=== PATIENT | female | born 1960 | race African-American/Black ===

== ENCOUNTER 2017-04-28 15:34 | Inpatient (IN) | payer OTHER ==
[~2017-04-28] VITALS: Ht 177.8 cm; Wt 80.1 kg
[2017-04-28] VITALS (10 sets, daily range): BP systolic 86–153; BP diastolic 70–98
--- NOTE | ~2017-04-28 | HC ---
[facility] [place] [address] CONSULTATION Name: NICOLE OLGUINCJ Room #: 248-P [facility] IN M.R.#: [id number] Admission: 04/28/17 Attend Phys: Levon Mclaughlin MD Discharge: 05/02/17 Date of : 58 Report #: [id number] THIS REPORT FOR: //name// CC: Levon KNIGHT PCP DATE OF SERVICE: 04/29/2017 WOUND CARE CONSULTATION NOTE REASON FOR CONSULTATION: Sepsis with right ischial stage 4 pressure ulcer in the setting of debility, previous cerebrovascular accident, dementia and diabetes. HISTORY OF PRESENT ILLNESS: The patient is a 56-year-old woman suffering from dementia, debility and previous cerebrovascular accident with right-sided weakness who is known to the wound care team from previous hospitalized care. The patient is admitted with sepsis, elevated white blood count of 15,000 and hypernatremia with sodium of 162. 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 The patient is admitted now in the Intensive Care Unit with sepsis and has been seen by Dr. Joyner. PAST MEDICAL HISTORY: Previous cerebrovascular accident with right-sided weakness, dementia, seizure disorder, diabetes mellitus type 2, history of hepatitis C, history of acute kidney injury, current urinary tract infection, diabetes mellitus type 2. PAST SURGICAL HISTORY: PEG tube placement. REVIEW OF SYSTEMS: Not obtainable. MEDICATIONS: Include Rocephin, Flagyl, Dilantin, amlodipine, aspirin, Keppra, Levemir insulin, hydralazine, Zestril, omeprazole, lactulose. Also, metoprolol and hydralazine. PHYSICAL EXAMINATION: Shows chronically ill-appearing elderly -Malaysian woman with some right-sided weakness. Mucous membranes are moist. The patient is conscious. Neck is supple. The patient shows right-sided weakness on exam. Abdomen is soft with presence of a PEG tube and a Quinn bladder catheter. There are no wounds to the lower extremities. Examination of the patient's back shows a large 3 x 3 x 4 cm deep right ischial stage 4 pressure ulcer. Wound has a foul odor and has dark black khan desiccated tissue lining it and at the base. There is minimal amount of purulence and there appears to be a minimal amount of necrotic burden. There is exposed bone and connective tissue at the base of the wound. There did not appear to be any deep tunneling. [place] [address] CONSULTATION Name: CJ STERLING Room #: 248-P [facility] IN M.R.#: [id number] Admission: 04/28/17 Attend Phys: Levon Mclaughlin MD Discharge: 05/02/17 Date of : 58 Report #: [id number] tracking infection. On the patient's left side, there is a smaller 1 cm stage 3 left sacral pressure ulcer. IMPRESSION: 1. Diabetes mellitus type 2, skin ulcer. 2. Dementia. 3. Debility. 4. Status post cerebrovascular accident with right-sided weakness. 5. Admission with sepsis and urinary tract infection. 6. History of hepatitis C. 7. Right ischial stage 4 pressure ulcer with superficial necrosis of the wound edges. No evidence of deep sepsis. 8. Sacral stage 3 pressure ulcer. PLAN: Right ischial stage 4 pressure ulcer may require bedside debridement at some point, but does not appear to have a great burden of necrotic tissue nor have a need to require operative debridement at this time. We will attempt to clean the wound up with twice daily half strength Dakin's dressings. Barrier cream for the small sacral 3 ulcer. Maximize nutrition with PEG tube, total body offloading with low air loss mattress. We will pay close attention to right ischial stage 4 pressure ulcer for possible need for debridement, antibiotic selection per Dr. Joyner. <ELECTRONICALLY SIGNED> By: Ori Nolasco MD 05/03/17 1018 [id number] Ori Nolasco MD /nt
--- NOTE | ~2017-04-28 | EKG ---
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 Babysitter: MZOOK : 1960 Requested By: Johana Lazo Order Number: [id number] MD: Wesley Chavez Measurements Intervals [place] Rate: 96 P: 50 MT: 143 QRS: -54 QRSD: 113 T: 72 QT: 399 QTc: 505 Interpretive Statements Sinus rhythm Left anterior hemiblock Abnormal R-wave progression, late transition Left ventricular hypertrophy Compared to ECG 01/18/2012 09:37:03 No significant change was found Electronically Signed On 04-29-2017 8:47:19 [employer]OUR [employer]ER by Wesley Chavez [email or web address] <ELECTRONICALLY SIGNED> By: Wesley Chavez MD, [facility] 04/29/17 0847 1650 1650 Wesley Chavez MD, [facility] /EPI
--- NOTE | ~2017-04-28 | HC ---
[facility] [place] [address] CONSULTATION Name: CJ STERLING Room #: 248-P ADM IN M.R.#: [id number] Admission: 04/28/17 Attend Phys: Levon Mclaughlin MD Discharge: Date of : 58 Report #: [id number] THIS REPORT FOR: //name// CC: Levon Mclaughlin NO PCP TYPE OF REPORT: Pulmonary consultation. REFERRING PHYSICIAN: Levon Mclaughlin M.D. REASON FOR REFERRAL: Sepsis. HISTORY OF PRESENT ILLNESS: The patient is a 56-year-old -[place] female who was brought to the Emergency Room with altered mental status. She normally resides at [facility]. She was admitted with probable sepsis. A pulmonary critical care consultation was requested. The patient has dementia. Not able to provide much history. In the ER, the patient was found to be hypoglycemic. She is felt to have a urinary tract infection with acute kidney injury and altered mental status. Presently, she is resting in bed. Moans occasionally. 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 PAST SURGICAL HISTORY: Status post PEG tube placement. ALLERGIES: None to medications. HOME MEDICATIONS: Reviewed from the jail. FAMILY HISTORY: Noncontributory. SOCIAL HISTORY: No tobacco or alcohol use. She resides in a jail. REVIEW OF SYSTEMS: Deferred as the patient is not able to provide much history. PHYSICAL EXAMINATION: GENERAL: She is awake, at times not coherent. She moans to pain. VITAL SIGNS: Temperature is 37 degrees Celsius, pulse is 96, respiratory rate is 18, blood pressure 126/86 mmHg and saturation 100%. HEENT: Normocephalic and atraumatic. NECK: Supple, without lymphadenopathy or thyromegaly. CHEST: Breath sounds are fair anteriorly. No obvious rales or wheezes. [facility] [address] [place] [address] CONSULTATION Name: NICOLE OLGUINCJ Room #: 248-P ADM IN M.R.#: [id number] Admission: 04/28/17 Attend Phys: Levon Mclaughlin MD Discharge: Date of : 58 Report #: [id number] CARDIOVASCULAR: Normal S1 and S2. There are no murmurs or gallop. There is no JVD. There is no carotid bruit. Pulses are 2+/4+ bilaterally. ABDOMEN: Soft and nontender. No organomegaly or masses felt. GENITOURINARY: Deferred. RECTAL: Deferred. EXTREMITIES: There is no edema, cyanosis or clubbing. RADIOLOGICAL DATA: Portable chest x-ray shows questionable left lower lobe infiltrates. LABORATORY DATA: Sodium is 160, potassium 3.2, chloride 102, CO2 is 27, BUN is 26 36, creatinine is 1.0 and initially was 1.7 and glucose was 593. Liver function enzymes are mildly elevated. WBC 15,000; hemoglobin 16.0 and platelets are normal. No evidence of bandemia. Albumin 2.4. Arterial blood gas revealed pH 7.32, pCO2 of 49 and pO2 160 on 3-1/2 liters of O2. IMPRESSION: 1. Altered mental status in this 56-year-old -[place] female with past history of cerebrovascular accident, hemorrhagic bleed and dementia. The patient likely has underlying sepsis syndrome due to probable urinary tract infection. A chest x-ray suggests possible left lower lobe pneumonia. 2. Encephalopathy, toxic and metabolic. 3. Passive cerebrovascular accident, hemorrhagic bleed with dementia, generalized debility and weakness. 4. Hyponatremia with acute kidney injury and azotemic. Volume depletion is suspected. 5. Hyperglycemia. 6. Acute hypoxic hypercapnic respiratory failure with primary respiratory acidosis. 7. Severe protein-calorie malnutrition. 8. Chronic anemia. 9. Hypertension. 10. History of hepatitis C. 11. Seizure disorder. 12. History of chronic obstructive pulmonary disease. 13. Dysphagia, status post percutaneous endoscopic gastrostomy tube placement. 14. Depression, mood disorder. RECOMMENDATION: Agree with broad-spectrum antibiotics, sepsis protocol. DVT and GI prophylaxis. The patient in need of IV access. Central line was placed via left femoral vein. Overall, prognosis is guarded given severe comorbid conditions. [address] [address] CONSULTATION Name: CJ STERLING Room #: 248-P [facility] IN M.R.#: [id number] Admission: 04/28/17 Attend Phys: Levon Mclaughlin MD Discharge: Date of : 58 Report #: [id number] Thank you for this consultation. <ELECTRONICALLY SIGNED> By: Aaron Caraballo MD 04/30/17 1548 1612 0112 Aaron Caraballo MD /nt
--- NOTE | ~2017-04-28 | HC ---
[facility] [place] [address] CONSULTATION Name: NICOLE OLGUINSWETAYumi Room #: 248-P ADM IN M.R.#: [id number] Admission: 04/28/17 Attend Phys: Levon Mclaughlin MD Discharge: Date of : 58 Report #: [id number] THIS REPORT FOR: //name// CC: Levon Mclaughlin NO PCP REASON FOR CONSULTATION: I was asked to evaluate concerning severe sepsis. HISTORY OF PRESENT ILLNESS: The patient is a 56-[facility]-old [facility] resident with previous stroke, dementia, seizure disorder, and diabetes who I had seen last month with a right ischial decubitus. She has been undergoing wound care. She presents to the emergency room on 04/28/2017, with decreased mental status and hyperglycemia. She is found to have pyuria and bacteriuria. She has a PEG tube and a chronic indwelling Quinn catheter. ALLERGIES: None known. MEDICATIONS: As noted on her MAR, now on vancomycin and Zosyn. PAST MEDICAL HISTORY: CVA, anemia, diabetes, depression, mood disorder, seizure disorder, dementia, hypertension, COPD, hepatitis C, and dysphagia. FAMILY HISTORY: Noncontributory. SOCIAL HISTORY: half-way resident, nonsmoker, no significant alcohol intake. REVIEW OF SYSTEMS: The patient was unable to give any details. She has become more alert over the last several hours. PHYSICAL EXAMINATION: VITAL SIGNS: Afebrile and hemodynamically stable. GENERAL: She was awake and did respond with yes, no type answer, although was not conclusive. She did smile when was talking to. On 2 liters nasal cannula. HEENT: Otherwise, unremarkable, not clear if she can see out of the right eye. NECK: Supple. LUNGS: Few crackles in the bases bilaterally. HEART: Regular without murmur. ABDOMEN: Soft, nontender, no hepatosplenomegaly or mass. EXTREMITIES: Right ischial ulcer was stage IV, deep, had some necrotic fat odorous, more shallow ulcer to the left ischium. Flaccid on the right. LABORATORY STUDIES: Sodium 162, potassium 3.2, bicarb 25, creatinine 0.9, blood glucose today 146. Liver function test normal, alkaline phosphatase 184, lactate was 2. INR 1. Hemoglobin 12.4, white count 12.2 down from 15 on admission, platelet count 208,000, 77%, bands, 15% lymphs. Viral respiratory panel pending. Urinalysis, many WBCs, many bacteria. ABG on 1.5 liters, pO2 [address] [address] CONSULTATION Name: CJ STERLING Room #: [facility] ADM IN M.R.#: [id number] Admission: 04/28/17 Attend Phys: Levon Mclaughlin MD Discharge: Date of : 58 Report #: [id number] 120, pCO2 44, pH 7.35, bicarb 24. Urine culture, Gram-negative bacilli, identification pending. Blood cultures pending. Influenza antigen negative. Urine antigen pending. Chest x-ray, mild bilateral perihilar interstitial infiltrates. CT head, large left MCA territory infarct. IMPRESSION: A 56-year-old with change in mental status, Gram-negative urinary tract infection, leukocytosis, chronic right ischial wound, previously worked up last month with no evidence of osteomyelitis by MRI scan. She has perihilar interstitial changes. No significant cough or hypoxia noted. Still possible acute pneumonia. We would recommend Tamiflu, await viral respiratory panel, continue Gram-negative antibiotic coverage. Continue atypical antibiotic coverage. <ELECTRONICALLY SIGNED> By: Brian Joyner MD 04/30/17 1127 0816 1009 Brian Joyner MD /nt
[~2017-04-28 15:34] MED LIST: ACETAMINOP160 MG/51 PER TUBE; ADULT LOW DOSE81 MG PER TUBE; AMLODIPINE BESY10 MG PER TUBE; AMOXICILLIN 50500 M1 PER TUBE; ASPIRIN EC81 M1 PER TUBE; ATIVAN0.5 MG PO; BLOOD GLUCOSE1 EAC5; CARBAMAZEP100 MG/5 M PER TUBE; CARVEDILOL3.125 MG PO; CEFTRIAXON1 GM/50 M1 IVPB; CENTRUM SILVER1 EAC4 PER TUBE; CLONIDINE-TTS0.3 MG TRANSDERM; COLACE100 MG PO; COMPAZINE10 M1 PO; CONSTULOSE10 GM/15 M PER TUBE; DILANTIN-1125 MG/5 M PER TUBE; DOCU LIQUI50 MG/5 ML PER TUBE; FLAGYL500 MG IV; GEODON20 MG IM; GEODON20 MG PO; GLUCERNA 1.5 C237 ML PER TUBE; GLYCOLAX POWDER17 G1 PO; HALDOL 0.5 MG0.5 MG PER TUBE; HALOPERIDOL 5 MG5 MG PER TUBE; HYDRALAZINE 10M10 MG PER TUBE; HYDRALAZINE 2525 MG PER TUBE; HYDROCHLOROTH12.5 MG PER TUBE; IBUPROFEN 400400 M1 PO; KEPPRA 100100 MG/M1 PER TUBE; KEPPRA 500 MG500 M1 PER TUBE; KLOR-CON 10 ER10 MEQ PO; LACTULOSE10 GM/15 M PER TUBE; LANTUS100 UNIT/M SUBQ; LEVEMIR SUBQ; LIDOCAINE HCL 210 M1 TOP; LISINOPRIL20 MG PER TUBE; LISINOPRIL40 MG PER TUBE; LOPERAMIDE 2 MG2 MG PO; LOPRESSOR100 MG PER TUBE; LORAZEPAM 22 MG/1 ML IM; NORCO 5-325 TA1 EACH PO; NOVOFINE AUTOC1 EACH SUBQ; NOVOLOG FL100 UNIT/M; NOVOLOG100 UNIT/1; OMEPRAZOLE5 GM PER TUBE; PEDIA-LAX50 MG/15 M PER TUBE; PREVACID 15 MG15 M4 PER TUBE; PREVACID30 M2 PER TUBE; PRILOSEC10 MG PER TUBE; RANITIDINE 150150 M1 PO; REMERON15 M1 PER TUBE; REMERON15 MG PO; SENNA; SIMVASTATIN20 MG PO; SORBITOL SOLUT500 ML PER TUBE; VIMPAT200 MG; VIMPAT200 MG PER TUBE; WELLBUTRIN SR150 MG PO; Ziprasidone IM; [UNRECOGNIZED DRUG - OTHER] PO
[2017-04-28 16:24] LABS: BASOPHILS 0.3 % (0.0-2.0); EOSINOPHILS 0.2 % (0.0-3.0); HEMATOCRIT 50.9 % (37.0-47.0); LYMPHOCYTES 15.3 % (24.0-44.0); MCH 28.5 pg (26.0-34.0); MCHC 31.4 g/dL (28.0-37.0); MCV 90.8 fL (80.0-100.0); MONOCYTES 4.5 % (1.0-8.0); PLATELET COUNT 281 thou/uL (150-400); POLYS 79.7 % (36.0-66.0); RDW 14.3 % (10.5-14.5)
[2017-04-28 16:46] LABS: ALBUMIN 2.4 g/dL (3.4-5.0); CALCIUM 9.8 mg/dL (8.5-10.1); CREATININE 1.7 mg/dL (0.6-1.0); TOTAL BILIRUBIN 0.3 mg/dL (<0.1-1.0); TOTAL PROTEIN 8.8 g/dL (6.4-8.2)
[2017-04-28 16:59] LABS: POTASSIUM 3.8 mmol/L (3.5-5.1)
[2017-04-28 17:02] LABS: URINE BILIRUBIN NEGATIVE (Negative); URINE BLOOD 2+ (Negative); URINE CLARITY SL CLOUDY; URINE COLOR YELLOW; URINE GLUCOSE-RANDOM* 3+ (Negative); URINE KETONES NEGATIVE (Negative); URINE LEUKOCYTES 1+ (Negative); URINE NITRITE NEGATIVE (Negative); URINE PROTEIN (DIPSTICK) NEGATIVE (Negative); URINE SPECIFIC GRAVITY 1.015 (1.005-1.035); URINE UROBILINOGEN 0.2 E.U./dl (0.2-1.0)
[2017-04-28 17:24] LABS: BACTERIA >30 Many /HPF (None Seen); CASTS None Seen /LPF (None Seen); CRYSTALS None Seen /LPF (None Seen); SQUAMOUS 4-10 Moderate /LPF (0-3)
[2017-04-28 17:25] LABS: URINE RBC 3-10 Few /HPF (0-2); URINE WBC >25 Many /HPF (0-5)
[2017-04-28 19:52] LABS: BE(vivo) -1.1 mmol/L (-2 to +3); HCO3 25.4 mmol/L (22.0-26.0); PCO2 49.6 mmHg (35.0-45.0); PO2 160.8 mmHg (80.0-100.0); sO2 98.9 % (92.0-98.0)
[2017-04-28 19:57] LABS: pH 7.328 (7.360-7.450)
[2017-04-28 20:23] LABS: APTT 24.4 Seconds (24.5-32.8); PROTIME 10.3 Seconds (9.3-11.4)
[2017-04-28 20:28] LABS: FIBRINOGEN 616.5 mg/dL (210-360)
[2017-04-29] VITALS (57 sets, daily range): BP systolic 100–202; BP diastolic 66–114
[2017-04-29 02:37] LABS: CALCIUM 8.4 mg/dL (8.5-10.1); POTASSIUM 3.2 mmol/L (3.5-5.1)
[2017-04-29 02:51] LABS: BASOPHILS 0.4 % (0.0-2.0); EOSINOPHILS 0.4 % (0.0-3.0); HEMATOCRIT 40.1 % (37.0-47.0); MCH 27.9 pg (26.0-34.0); MCV 89.9 fL (80.0-100.0); MONOCYTES 4.6 % (1.0-8.0); PLATELET COUNT 220 thou/uL (150-400); POLYS 78.6 % (36.0-66.0); RBC 4.46 mil/uL (4.20-5.00); WBC 12.7 thou/uL (4.0-11.0)
[2017-04-29 02:55] LABS: HEMOGLOBIN 12.5 gm/dL (12.0-15.0)
[2017-04-29 05:30] LABS: BE(vivo) -1.2 mmol/L (-2 to +3); HCO3 24.4 mmol/L (22.0-26.0); PCO2 44.4 mmHg (35.0-45.0); PO2 120.7 mmHg (80.0-100.0); pH 7.358 (7.360-7.450); sO2 98.2 % (92.0-98.0)
[2017-04-29 07:02] LABS: ABSOLUTE NEUTROPHILS 9.4 thou/uL (1.4-8.2); BASOPHILS 0.4 % (0.0-2.0); EOSINOPHILS 0.9 % (0.0-3.0); HEMATOCRIT 39.7 % (37.0-47.0); HEMOGLOBIN 12.4 gm/dL (12.0-15.0); LYMPHOCYTES 15.5 % (24.0-44.0); MCH 27.8 pg (26.0-34.0); MCHC 31.2 g/dL (28.0-37.0); MCV 89.2 fL (80.0-100.0); PLATELET COUNT 208 thou/uL (150-400); POLYS 77.2 % (36.0-66.0); RBC 4.45 mil/uL (4.20-5.00); RDW 13.7 % (10.5-14.5); WBC 12.2 thou/uL (4.0-11.0)
[2017-04-29 07:17] LABS: CALCIUM 8.4 mg/dL (8.5-10.1); CREATININE 0.9 mg/dL (0.6-1.0); POTASSIUM 3.2 mmol/L (3.5-5.1)
[2017-04-29 12:58] LABS: CALCIUM 8.4 mg/dL (8.5-10.1); CREATININE 0.9 mg/dL (0.6-1.0)
[2017-04-29 13:08] LABS: POTASSIUM 2.8 mmol/L (3.5-5.1)
[2017-04-29 21:27] LABS: CALCIUM 8.4 mg/dL (8.5-10.1); CREATININE 0.8 mg/dL (0.6-1.0); MAGNESIUM 2.3 mg/dL (1.8-2.4); POTASSIUM 3.4 mmol/L (3.5-5.1)
[2017-04-30] VITALS (27 sets, daily range): BP systolic 128–190; BP diastolic 72–131
[2017-04-30 05:28] LABS: ABSOLUTE NEUTROPHILS 7.7 thou/uL (1.4-8.2); BASOPHILS 0.6 % (0.0-2.0); EOSINOPHILS 1.4 % (0.0-3.0); HEMATOCRIT 38.3 % (37.0-47.0); HEMOGLOBIN 11.9 gm/dL (12.0-15.0); LYMPHOCYTES 17.2 % (24.0-44.0); MCHC 31.1 g/dL (28.0-37.0); MONOCYTES 5.7 % (1.0-8.0); PLATELET COUNT 169 thou/uL (150-400); POLYS 75.1 % (36.0-66.0); RBC 4.25 mil/uL (4.20-5.00); RDW 14.1 % (10.5-14.5); WBC 10.2 thou/uL (4.0-11.0)
[2017-04-30 05:37] LABS: CALCIUM 8.5 mg/dL (8.5-10.1); CREATININE 0.7 mg/dL (0.6-1.0); POTASSIUM 3.5 mmol/L (3.5-5.1)
[2017-05-01] VITALS (25 sets, daily range): BP systolic 107–202; BP diastolic 56–111
[2017-05-01 04:33] LABS: HEMATOCRIT 37.6 % (37.0-47.0); MCV 87.5 fL (80.0-100.0); RBC 4.3 mil/uL (4.20-5.00); RDW 13.7 % (10.5-14.5); WBC 7.6 thou/uL (4.0-11.0)
[2017-05-01 04:40] LABS: CALCIUM 8.1 mg/dL (8.5-10.1); CREATININE 0.6 mg/dL (0.6-1.0)
[2017-05-01 04:59] LABS: POTASSIUM 2.7 mmol/L (3.5-5.1)
[2017-05-02] VITALS (13 sets, daily range): BP systolic 112–165; BP diastolic 74–104
[2017-05-02 05:31] LABS: HEMATOCRIT 35.8 % (37.0-47.0); HEMOGLOBIN 11.4 gm/dL (12.0-15.0); MCHC 31.9 g/dL (28.0-37.0); MCV 87.6 fL (80.0-100.0); RBC 4.08 mil/uL (4.20-5.00); RDW 13.3 % (10.5-14.5); WBC 8.7 thou/uL (4.0-11.0)
[2017-05-02 05:36] LABS: CALCIUM 8.1 mg/dL (8.5-10.1); CREATININE 0.7 mg/dL (0.6-1.0); POTASSIUM 3.6 mmol/L (3.5-5.1)
[2017-05-02] MEDS ORDERED: OSELB75 PO (10:26)
[2017-05-02] MEDS ORDERED: DURAGESIC25 MCG/HR TRANSDERM (10:28)
[2017-05-02] MEDS ORDERED: MONUROL3 GM PER TUBE ×2 (12:43→12:51)
[2017-05-03 18:06] LABS: ADENOVIRUS Negative (Negative); INFLUENZA A Negative (Negative); INFLUENZA B Negative (Negative); METAPNEUMOVIRUS Negative (Negative); PARAINFLUENZA 1 Negative (Negative); PARAINFLUENZA 2 Negative (Negative); PARAINFLUENZA 3 Negative (Negative); RHINOVIRUS Negative (Negative); RSV A Negative (Negative); RSV B Negative (Negative)
== END 2017-05-02 16:40 | DRG 871 ==
LOC: ER 15:34 → ICU 18:25 → EROBS 18:25 → ICU 22:38
PROVIDERS: Emergency Medicine; Internal Medicine; Internal Medicine Pulmonary Disease; Nurse Practitioner Family; Specialist
PROC: 02H633Z Insertion of Infusion Device into Right Atrium, Percutaneous Approach (ICD-10-PCS; principal; 2017-04-29)
PROC: B244ZZZ Ultrasonography of Right Heart (ICD-10-PCS; principal; 2017-04-29)
DX: A41.9 Sepsis, unspecified organism (principal); J96.01 Acute respiratory failure with hypoxia; J96.02 Acute respiratory failure with hypercapnia; E43 Unspecified severe protein-calorie malnutrition; G92 Toxic encephalopathy; R65.21 Severe sepsis with septic shock; J18.9 Pneumonia, unspecified organism; N17.0 Acute kidney failure with tubular necrosis; L89.153 Pressure ulcer of sacral region, stage 3; L89.314 Pressure ulcer of right buttock, stage 4; E87.0 Hyperosmolality and hypernatremia; N39.0 Urinary tract infection, site not specified; I69.351 Hemiplegia and hemiparesis following cerebral infarction affecting right dominant side; E87.1 Hypo-osmolality and hyponatremia; J44.0 Chronic obstructive pulmonary disease with (acute) lower respiratory infection; Z66 Do not resuscitate; F32.9 Major depressive disorder, single episode, unspecified; K21.9 Gastro-esophageal reflux disease without esophagitis; I10 Essential (primary) hypertension; G40.909 Epilepsy, unspecified, not intractable, without status epilepticus; H91.90 Unspecified hearing loss, unspecified ear; F03.90 Unspecified dementia, unspecified severity, without behavioral disturbance, psychotic disturbance, mood disturbance, and anxiety; E11.65 Type 2 diabetes mellitus with hyperglycemia; D64.9 Anemia, unspecified; E86.9 Volume depletion, unspecified; B96.1 Klebsiella pneumoniae [K. pneumoniae] as the cause of diseases classified elsewhere; Z93.1 Gastrostomy status; Z79.899 Other long term (current) drug therapy; Z68.25 Body mass index [BMI] 25.0-25.9, adult
CPT/HCPCS: 10204; 27000

== ENCOUNTER 2017-06-26 15:36 | Inpatient (IN) | payer OTHER ==
[~2017-06-26] VITALS: Ht 167.6 cm; Wt 97.8 kg
--- NOTE | ~2017-06-26 | HC ---
[facility] [place] [address] CONSULTATION Name: NICOLE OLGUINCJ Room #: 201-P ADM IN M.R.#: [id number] Admission: 06/26/17 Attend Phys: Hank Stafford Discharge: Date of : 58 Report #: [id number] THIS REPORT FOR: //name// CC: Hank Bartlett REASON FOR CONSULTATION: I was asked to evaluate concerning sepsis and complicated urinary tract infection. HISTORY OF PRESENT ILLNESS: The patient was a 56-year-old residential resident, known to me from her previous hospitalization in April where she was diagnosed with complicated urinary tract infection, ESBL producing Klebsiella along with possible aspiration pneumonia. Subsequently, she returns with gross hematuria. She did have some blood from her vagina noticed. She had fluid through five disposable check pads. The catheter was found obstructed. This was changed. Now has gross hematuria identified. She has had temperature to 37.9, hemodynamically stable, although tachycardic. She was awake. She did smile when confronted. No other history obtainable. PAST MEDICAL HISTORY: Stroke, anemia, diabetes, depression, esophagitis, hypertension, hepatitis C, seizure disorder, COPD, intraparenchymal hemorrhage, dysphagia, PEG tube, encephalopathy. ALLERGIES: None known. MEDICATIONS: As noted on JUN, having been given vancomycin, Zosyn and Levaquin in the Emergency Room. FAMILY HISTORY: Noncontributory. SOCIAL HISTORY: Noncontributory. intermediate resident. REVIEW OF SYSTEMS: Noted above with known left facial chronic decubitus as well as decubitus to her right foot and left lower leg. Chronic indwelling Quinn catheter, PEG tube. PHYSICAL EXAMINATION: VITAL SIGNS: Temperature was 37.9. Vital signs stable, although tachycardic at 120. Blood pressure is 128/87. GENERAL: She was awake. She would smile when talked to. Obese. SKIN: Right ischial wound with small amount of serous drainage. Right dorsal foot wound clean, no purulent drainage. Left lateral lower leg wound clean, no purulent drainage. No adenopathy. HEENT: Dentition in fair repair. NECK: Supple. LUNGS: Clear. HEART: Regular, without murmur. [facility] [address] [place] [address] CONSULTATION Name: CJ STERLING Room #: 201- ADM IN M.R.#: [id number] Admission: 06/26/17 Attend Phys: Hank Stafford Discharge: Date of : 58 Report #: [id number] ABDOMEN: Soft, obese, tender in the lower abdomen. No definite mass. Quinn catheter in place, bloody urine in the tubing. LABORATORY STUDIES: Lactate 4.1, sodium 133, potassium 7, bicarbonate 23, creatinine 2.3, blood glucose 698, AST 40, ALT 25, alkaline phosphatase 229, bilirubin 0.4. Hemoglobin 15.7, platelet count 298,000, white count 12.3, 78% segs, 12% lymphs. Urinalysis, wbc's, rbc's, bacteria. Blood and urine cultures pending. Chest x-ray, basilar atelectasis. IMPRESSION: 1. Sepsis with complicated urinary tract infection, gross hematuria. This is in the setting of seizure disorder, previous intracranial hemorrhage and chronic debilitated state. 2. She has acute renal failure with hyponatremia and hyperkalemia. Repeat potassium was 5.4. 3. Diabetes, not controlled. RECOMMENDATIONS: Continue with broad antibiotic coverage, note previous ESBL producing Klebsiella Contact precautions. IV fluid resuscitation. Image abdomen to ensure no further obstruction. May need 3-way catheter to irrigate the bladder. <ELECTRONICALLY SIGNED> By: Brian Joyner MD 06/27/17 0902 2144 2252 Brian Joyner MD /nt
--- NOTE | ~2017-06-26 | EKG ---
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 : 1960 Requested By: Jay Sharp Order Number: [id number] MD: Wesley Chavez Measurements Intervals [place] Rate: 123 P: 30 [place]: 149 QRS: -60 QRSD: 113 T: 119 QT: 334 QTc: 478 Interpretive Statements Sinus tachycardia Multiple ventricular premature complexes Abnormal R-wave progression, late transition LVH with secondary repolarization abnormality Inferior infarct, old Compared to ECG 04/28/2017 16:50:00 Ventricular premature complex(es) now present Electronically Signed On 06-29-2017 13:25:23 CDT by Wesley Chavez [email or web address] <ELECTRONICALLY SIGNED> By: Wesley Chavez MD, [facility] 06/29/17 1325 1559 1559 Wesley Chavez MD, [facility] /EPI
[~2017-06-26 15:36] MED LIST changes: +DURAGESIC25 MCG/HR TRANSDERM; +MONUROL3 GM PER TUBE; +OSELB75 PO
[2017-06-26 15:37] VITALS: BP 204/156
[2017-06-26 16:18] LABS: URINE BILIRUBIN 2+ (Negative); URINE BLOOD 3+ (Negative); URINE GLUCOSE-RANDOM* 2+ (Negative); URINE KETONES TRACE (Negative); URINE PROTEIN (DIPSTICK) 3+ (Negative); URINE SPECIFIC GRAVITY 1.015 (1.005-1.035)
[2017-06-26 16:20] LABS: HEMATOCRIT 49.7 % (37.0-47.0); HEMOGLOBIN 15.7 gm/dL (12.0-15.0); MCH 27.7 pg (26.0-34.0); MCHC 31.7 g/dL (28.0-37.0); MCV 87.2 fL (80.0-100.0); PLATELET COUNT 298 thou/uL (150-400); RBC 5.69 mil/uL (4.20-5.00); RDW 15.4 % (10.5-14.5); WBC 12.3 thou/uL (4.0-11.0)
[2017-06-26 16:28] LABS: ICTOTEST (BILI CONFIRMATORY) Negative (Negative); URINE LEUKOCYTES-REFLEX 2+ (Negative); URINE NITRITE-REFLEX POSITIVE (Negative)
[2017-06-26 16:35] LABS: CASTS None Seen /LPF (None Seen); CRYSTALS None Seen /LPF (None Seen); MUCUS 4-6 Moderate strn/LPF (None Seen); SQUAMOUS 4-10 Moderate /LPF (0-3); URINE RBC >20 Many /HPF (0-2); URINE WBC-REFLEX >25 Many /HPF (0-5); WBC CLUMPS Many (None Seen)
[2017-06-26 16:37] LABS: SSA (PROTEIN CONFIRMATORY) 3+ (APPROX. 200-500) mg/dL (Negative)
[2017-06-26 16:44] LABS: ABSOLUTE NEUTROPHILS 9.6 thou/uL (1.4-8.2)
[2017-06-26 16:46] LABS: ALBUMIN 2.6 g/dL (3.4-5.0); CALCIUM 9.8 mg/dL (8.5-10.1); CREATININE 2.3 mg/dL (0.6-1.0); TOTAL BILIRUBIN 0.4 mg/dL (<0.1-1.0); TOTAL PROTEIN 8.9 g/dL (6.4-8.2)
[2017-06-26 16:59] LABS: URINE COLOR RED
[2017-06-26 17:00] LABS: URINE CLARITY TURBID
[2017-06-26 18:21] LABS: APTT 27.3 Seconds (24.5-32.8); PROTIME 10.7 Seconds (9.3-11.4)
[2017-06-26 18:45] VITALS: BP 114/84
[2017-06-26 19:47] VITALS: BP 128/87
[2017-06-27 00:05] VITALS: BP 105/65
[2017-06-27 05:14] VITALS: BP 122/85
[2017-06-27 06:02] LABS: CALCIUM 8.8 mg/dL (8.5-10.1)
[2017-06-27 07:25] VITALS: BP 101/65
[2017-06-27 15:11] VITALS: BP 113/67
[2017-06-27 20:48] VITALS: BP 136/52
[2017-06-28 04:10] VITALS: BP 162/84
[2017-06-28 07:35] VITALS: BP 164/84
[2017-06-28 10:50] LABS: ALBUMIN 1.7 g/dL (3.4-5.0); CALCIUM 8.6 mg/dL (8.5-10.1); CREATININE 0.5 mg/dL (0.6-1.0); PHOSPHORUS 2.7 mg/dL (2.5-4.9); POTASSIUM 4.4 mmol/L (3.5-5.1)
[2017-06-28 11:50] VITALS: BP 160/83
[2017-06-28 13:17] LABS: HEMATOCRIT 35.8 % (37.0-47.0); MCH 27.7 pg (26.0-34.0); MCHC 31.8 g/dL (28.0-37.0); RBC 4.12 mil/uL (4.20-5.00); RDW 15.2 % (10.5-14.5); WBC 11.3 thou/uL (4.0-11.0)
[2017-06-28 13:19] LABS: HEMOGLOBIN 11.4 gm/dL (12.0-15.0)
[2017-06-28 15:39] VITALS: BP 161/80
[2017-06-28 19:58] VITALS: BP 152/77
[2017-06-29 05:24] VITALS: BP 151/90
[2017-06-29 07:25] VITALS: BP 161/87
[2017-06-29 11:25] VITALS: BP 120/96
[2017-06-29 15:15] VITALS: BP 164/83
[2017-06-29 21:03] VITALS: BP 158/82
[2017-06-30 03:45] LABS: ALBUMIN 2.1 g/dL (3.4-5.0); CALCIUM 8.9 mg/dL (8.5-10.1); CREATININE 0.5 mg/dL (0.6-1.0); PHOSPHORUS 2.6 mg/dL (2.5-4.9); POTASSIUM 3.6 mmol/L (3.5-5.1)
[2017-06-30 03:46] VITALS: BP 154/88
[2017-06-30 07:35] VITALS: BP 195/116
[2017-06-30] MEDS ORDERED: CLONIDINE0.1 PER TUBE (08:43)
[2017-06-30] MEDS ORDERED: AUGMENTIN400 MG/53 PER TUBE (08:48)
[2017-06-30 09:04] VITALS: BP 198/98
[2017-06-30 10:22] VITALS: BP 139/83
[2017-06-30 11:15] VITALS: BP 156/78
== END 2017-06-30 13:55 | DRG 698 ==
LOC: ER 15:36 → 2N 17:39 → EROBS 17:39 → 2N 18:23
PROVIDERS: Hospitalist; Physician Assistant
DX: T83.511A Infection and inflammatory reaction due to indwelling urethral catheter, initial encounter (principal); A41.9 Sepsis, unspecified organism; N17.0 Acute kidney failure with tubular necrosis; R65.20 Severe sepsis without septic shock; J18.9 Pneumonia, unspecified organism; L89.894 Pressure ulcer of other site, stage 4; E44.0 Moderate protein-calorie malnutrition; M86.60 Other chronic osteomyelitis, unspecified site; J44.0 Chronic obstructive pulmonary disease with (acute) lower respiratory infection; N39.0 Urinary tract infection, site not specified; F32.9 Major depressive disorder, single episode, unspecified; I10 Essential (primary) hypertension; F03.90 Unspecified dementia, unspecified severity, without behavioral disturbance, psychotic disturbance, mood disturbance, and anxiety; E11.65 Type 2 diabetes mellitus with hyperglycemia; E87.5 Hyperkalemia; I16.0 Hypertensive urgency; E86.0 Dehydration; E11.69 Type 2 diabetes mellitus with other specified complication; B96.5 Pseudomonas (aeruginosa) (mallei) (pseudomallei) as the cause of diseases classified elsewhere; Z66 Do not resuscitate; L89.90 Pressure ulcer of unspecified site, unspecified stage; Y84.6 Urinary catheterization as the cause of abnormal reaction of the patient, or of later complication, without mention of misadventure at the time of the procedure; Z86.73 Personal history of transient ischemic attack (TIA), and cerebral infarction without residual deficits; Z79.4 Long term (current) use of insulin; Z93.1 Gastrostomy status; Z68.34 Body mass index [BMI] 34.0-34.9, adult; Z79.899 Other long term (current) drug therapy; Y92.89 Other specified places as the place of occurrence of the external cause
CPT/HCPCS: 10081

== ENCOUNTER 2017-07-17 15:39 | Inpatient (IN) | payer OTHER ==
[~2017-07-17] VITALS: Ht 167.6 cm; Wt 90.7 kg
--- NOTE | ~2017-07-17 | EKG ---
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
--- NOTE | ~2017-07-17 | HC ---
[facility] [place] [address] CONSULTATION Name: CJ STERLING Room #: 352-P ADM IN M.R.#: [id number] Admission: 07/17/17 Attend Phys: Hank Stafford Discharge: Date of : 58 Report #: [id number] THIS REPORT FOR: //name// CC: Hank Bartlett HISTORY OF PRESENT ILLNESS: The patient is a 56-year-old, I was asked to evaluate concerning sepsis. She is a 56-year-old with previous stroke, long-term resident, hospitalized last month with urosepsis. She had Proteus identified from her urine. She has a chronic indwelling Quinn catheter for neurogenic bladder. Also, she has decubiti, right ischial and right distal foot. She completed a course of antibiotic therapy for Proteus. Most recently on amoxicillin. She returned on 07/17/2017, with vaginal bleeding, tachycardia, and suspected urosepsis. The patient was placed on IV antibiotic therapy, now vancomycin and meropenem. She had temperature up to 102 degrees. She remains tachycardic, hemodynamically stable. She has reasonable urine output. Urology has evaluated with no interventions recommended. Vaginal bleeding has resolved. Loose cough, no sputum production. The patient was noncommunicative. This is her baseline. ALLERGIES: None known. MEDICATIONS: As noted on her MAR, now on vancomycin and meropenem. PAST MEDICAL HISTORY, FAMILY HISTORY, AND SOCIAL HISTORY: Unchanged from previous consultation. REVIEW OF SYSTEMS: Noted above with no additions, the patient was unable to give any details. PHYSICAL EXAMINATION: GENERAL: She has a right IJ catheter that was placed last evening. Dentition in fair repair. She was alert and smiled when confronted. She had a loose intermittent cough. NECK: Supple. LUNGS: Coarse breath sounds in the mid posterior and lower chest sounds. No rub audible. HEART: Tachycardic and regular. ABDOMEN: Soft. PEG site was unremarkable. Indwelling Quinn catheter. No evidence of current vaginal bleeding. She had clear urine in the bag. EXTREMITIES: She had a right ischial wound, which was smaller than last hospital stay. She still had bloody drainage identified. Right medial distal foot wound was clean. Small wound to the left calf, which was clean. LABORATORY STUDIES: Blood cultures are pending. Urine culture, Proteus, sensitivities pending. Hemoglobin 12.3, white count 11.6, platelet count is 240,000, 21% bands. Lactate was 3 initially, now 1.8. Sodium 143, potassium [address] [address] CONSULTATION Name: CJ STERLING Room #: 352-P [facility] IN M.R.#: [id number] Admission: 07/17/17 Attend Phys: Hank Stafford Discharge: Date of : 58 Report #: [id number] 3.7, bicarbonate 27, and creatinine 1.3. Urinalysis had pyuria, hematuria and bacteriuria. Chest x-ray showed perihilar and basilar infiltrates. Some of which may be edema. IMPRESSION: Fever, tachycardia, leukocytosis with left shift, acute renal failure, suspect urinary tract versus wound versus pneumonitis. Very similar differential to her previous hospital stay. The patient is markedly debilitated due to her previous stroke and encephalopathy. RECOMMENDATIONS: We will continue broad antibiotic coverage for healthcare-associated organisms. We will await culture results. The patient does appear reasonably comfortable. If any deterioration, we would image her abdomen and pelvis further. We will repeat CBC to check her differential and her creatinine as well as chest x-ray throughout the hospital stay. <ELECTRONICALLY SIGNED> By: Brian Joyner MD 07/19/17 1154 1310 1418 Brian Joyner MD /nt
[~2017-07-17 15:39] MED LIST changes: +AUGMENTIN400 MG/53 PER TUBE; +CLONIDINE0.1 PER TUBE
[2017-07-17 15:41] VITALS: BP 120/86
[2017-07-17 16:24] LABS: URINE BILIRUBIN 1+ (Negative); URINE BLOOD 3+ (Negative); URINE CLARITY CLOUDY; URINE COLOR RED; URINE GLUCOSE-RANDOM* NEGATIVE (Negative); URINE KETONES TRACE (Negative); URINE PROTEIN (DIPSTICK) 3+ (Negative); URINE UROBILINOGEN 0.2 E.U./dl (0.2-1.0)
[2017-07-17 16:30] LABS: URINE LEUKOCYTES-REFLEX 3+ (Negative); URINE NITRITE-REFLEX POSITIVE (Negative)
[2017-07-17 16:33] LABS: ICTOTEST (BILI CONFIRMATORY) Negative (Negative)
[2017-07-17 16:35] LABS: CASTS None Seen /LPF (None Seen); SQUAMOUS 4-10 Moderate /LPF (0-3); URINE RBC >20 Many /HPF (0-2); URINE WBC-REFLEX >25 Many /HPF (0-5)
[2017-07-17 16:36] LABS: CRYSTALS None Seen /LPF (None Seen)
[2017-07-17 16:48] LABS: HEMOGLOBIN 14.9 gm/dL (12.0-15.0); MCH 27.7 pg (26.0-34.0); MCHC 32.5 g/dL (28.0-37.0); MCV 85.2 fL (80.0-100.0); PLATELET COUNT 325 thou/uL (150-400); RDW 15.7 % (10.5-14.5); WBC 11.7 thou/uL (4.0-11.0)
[2017-07-17 17:02] LABS: ANION GAP 12 mmol/L (7-16); BUN 35 mg/dL (7-18); CALCIUM 9.7 mg/dL (8.5-10.1); CHLORIDE 102 mmol/L (98-107); CO2 24 mmol/L (21-32); CREATININE 2.1 mg/dL (0.6-1.0); GLUCOSE 463 mg/dL (74-106); POTASSIUM 4.6 mmol/L (3.5-5.1); SODIUM 138 mmol/L (136-145)
[2017-07-17 17:10] LABS: ALBUMIN 2.6 g/dL (3.4-5.0); SGOT 27 U/L (15-37); SGPT 29 U/L (30-65); TOTAL BILIRUBIN 0.6 mg/dL (<0.1-1.0); TOTAL PROTEIN 8.8 g/dL (6.4-8.2); TROPONIN-I < 0.04 ng/mL (<0.06)
[2017-07-17 17:17] LABS: ABSOLUTE NEUTROPHILS 7.1 thou/uL (1.4-8.2)
[2017-07-17 18:16] VITALS: BP 120/86
[2017-07-17 18:29] LABS: BE(vivo) 0.5 mmol/L (-2 to +3); HCO3 24.5 mmol/L (22.0-26.0); PCO2 37.8 mmHg (35.0-45.0); PO2 60.6 mmHg (80.0-100.0)
[2017-07-17 19:29] LABS: CALCIUM 9.2 mg/dL (8.5-10.1); CREATININE 2.1 mg/dL (0.6-1.0); POTASSIUM 4.4 mmol/L (3.5-5.1)
[2017-07-17 20:24] VITALS: BP 121/83
[2017-07-18] VITALS (7 sets, daily range): BP systolic 142–179; BP diastolic 79–103
[2017-07-18] MEDS ORDERED: VIMPAT200 MG PER TUBE (02:03)
[2017-07-18 03:41] LABS: HEMATOCRIT 38.3 % (37.0-47.0); MCH 27.6 pg (26.0-34.0); MCHC 32.3 g/dL (28.0-37.0); MCV 85.4 fL (80.0-100.0); RBC 4.48 mil/uL (4.20-5.00); RDW 15.7 % (10.5-14.5); WBC 11.6 thou/uL (4.0-11.0)
[2017-07-18 03:42] LABS: HEMOGLOBIN 12.3 gm/dL (12.0-15.0); PLATELET COUNT 240 thou/uL (150-400)
[2017-07-18 03:48] LABS: CALCIUM 9.2 mg/dL (8.5-10.1); CREATININE 1.3 mg/dL (0.6-1.0); POTASSIUM 3.7 mmol/L (3.5-5.1)
[2017-07-18 07:20] LABS: ABSOLUTE NEUTROPHILS 7.3 thou/uL (1.4-8.2); METAMYELOCYTES 2 %; NUCLEATED RBCS 1 /100WBC
[2017-07-18 07:21] LABS: ANISOCYTOSIS SLIGHT
[2017-07-19] VITALS (8 sets, daily range): BP systolic 157–201; BP diastolic 85–109
[2017-07-19 04:38] LABS: HEMATOCRIT 35.4 % (37.0-47.0); HEMOGLOBIN 11.4 gm/dL (12.0-15.0); MCH 27.7 pg (26.0-34.0); MCHC 32.1 g/dL (28.0-37.0); MCV 86.2 fL (80.0-100.0); PLATELET COUNT 230 thou/uL (150-400); RDW 15.7 % (10.5-14.5); WBC 12.8 thou/uL (4.0-11.0)
[2017-07-19 04:46] LABS: ALBUMIN 2.1 g/dL (3.4-5.0); CALCIUM 8.8 mg/dL (8.5-10.1); CREATININE 0.7 mg/dL (0.6-1.0); PHOSPHORUS 1.6 mg/dL (2.5-4.9); POTASSIUM 3.1 mmol/L (3.5-5.1)
[2017-07-19 07:03] LABS: ABSOLUTE NEUTROPHILS 8.6 thou/uL (1.4-8.2); ANISOCYTOSIS 2+
[2017-07-20 03:45] VITALS: BP 171/89; BP 171/91
[2017-07-20 07:29] LABS: CALCIUM 8.6 mg/dL (8.5-10.1); CREATININE 0.6 mg/dL (0.6-1.0); PHOSPHORUS 2.4 mg/dL (2.5-4.9)
[2017-07-20 07:35] LABS: POTASSIUM 2.7 mmol/L (3.5-5.1)
[2017-07-20 09:40] VITALS: BP 199/103
[2017-07-20 12:21] VITALS: BP 179/95
[2017-07-20 17:00] VITALS: BP 208/110
[2017-07-20 20:51] VITALS: BP 131/82
[2017-07-21 05:36] VITALS: BP 166/99
[2017-07-21 06:52] LABS: HEMATOCRIT 35.1 % (37.0-47.0); HEMOGLOBIN 11.8 gm/dL (12.0-15.0); MCH 28.5 pg (26.0-34.0); MCHC 33.7 g/dL (28.0-37.0); MCV 84.8 fL (80.0-100.0); PLATELET COUNT 242 thou/uL (150-400); RBC 4.14 mil/uL (4.20-5.00); RDW 15.5 % (10.5-14.5); WBC 9.7 thou/uL (4.0-11.0)
[2017-07-21 07:00] LABS: CALCIUM 9.1 mg/dL (8.5-10.1); CREATININE 0.6 mg/dL (0.6-1.0); POTASSIUM 3.5 mmol/L (3.5-5.1)
[2017-07-21 07:30] VITALS: BP 188/89
[2017-07-21 08:26] LABS: ABSOLUTE NEUTROPHILS 4.9 thou/uL (1.4-8.2)
[2017-07-21 11:49] VITALS: BP 183/100
[2017-07-21 16:02] VITALS: BP 196/99
[2017-07-21 20:00] VITALS: BP 186/87
[2017-07-21 23:40] VITALS: BP 168/90
[2017-07-22 05:18] VITALS: BP 184/100
[2017-07-22 06:12] LABS: HEMATOCRIT 32.2 % (37.0-47.0); HEMOGLOBIN 10.5 gm/dL (12.0-15.0); MCH 27.5 pg (26.0-34.0); MCHC 32.6 g/dL (28.0-37.0); MCV 84.3 fL (80.0-100.0); PLATELET COUNT 230 thou/uL (150-400); RBC 3.83 mil/uL (4.20-5.00); RDW 15.4 % (10.5-14.5); WBC 9.1 thou/uL (4.0-11.0)
[2017-07-22 06:29] LABS: CALCIUM 8.9 mg/dL (8.5-10.1); CREATININE 0.6 mg/dL (0.6-1.0); POTASSIUM 3.2 mmol/L (3.5-5.1)
[2017-07-22 07:47] LABS: ATYPICAL LYMPHS 2 %; NUCLEATED RBCS 1 /100WBC
[2017-07-22 07:49] LABS: ANISOCYTOSIS SLIGHT
[2017-07-22 08:24] VITALS: BP 179/98
[2017-07-22 12:25] VITALS: BP 175/89
[2017-07-22 12:41] LABS: URINE BILIRUBIN NEGATIVE (Negative); URINE BLOOD 1+ (Negative); URINE CLARITY CLEAR; URINE COLOR YELLOW; URINE GLUCOSE-RANDOM* NEGATIVE (Negative); URINE KETONES NEGATIVE (Negative); URINE NITRITE-REFLEX NEGATIVE (Negative); URINE PROTEIN (DIPSTICK) 2+ (Negative); URINE SPECIFIC GRAVITY 1.015 (1.005-1.035); URINE UROBILINOGEN 0.2 E.U./dl (0.2-1.0)
[2017-07-22 12:43] LABS: URINE LEUKOCYTES-REFLEX TRACE (Negative)
[2017-07-22 12:52] LABS: CASTS None Seen /LPF (None Seen); CRYSTALS None Seen /LPF (None Seen); SQUAMOUS 0-3 Few /LPF (0-3); URINE RBC 3-10 Few /HPF (0-2); URINE WBC-REFLEX 6-15 Few /HPF (0-5); YEAST-REFLEX Present (None Seen)
[2017-07-22 12:54] LABS: RENAL EPITHELIAL CELLS 0-3 Few /LPF (None Seen)
[2017-07-22 16:35] VITALS: BP 150/89
[2017-07-22 19:16] VITALS: BP 183/99
[2017-07-22 23:57] VITALS: BP 167/92
[2017-07-23 04:21] VITALS: BP 170/101
[2017-07-23 06:25] LABS: HEMATOCRIT 32.4 % (37.0-47.0); HEMOGLOBIN 10.5 gm/dL (12.0-15.0); MCH 27.3 pg (26.0-34.0); MCHC 32.3 g/dL (28.0-37.0); MCV 84.7 fL (80.0-100.0); PLATELET COUNT 239 thou/uL (150-400); RBC 3.82 mil/uL (4.20-5.00); RDW 15.7 % (10.5-14.5); WBC 8.9 thou/uL (4.0-11.0)
[2017-07-23 06:30] LABS: CALCIUM 9.1 mg/dL (8.5-10.1); CREATININE 0.6 mg/dL (0.6-1.0); MAGNESIUM 2.1 mg/dL (1.8-2.4); POTASSIUM 3.5 mmol/L (3.5-5.1)
[2017-07-23 07:19] VITALS: BP 176/96
[2017-07-23 07:56] LABS: ABSOLUTE NEUTROPHILS 3.7 thou/uL (1.4-8.2); ANISOCYTOSIS SLIGHT; POIKILOCYTOSIS SLIGHT
[2017-07-23 12:00] VITALS: BP 154/95
[2017-07-23 16:00] VITALS: BP 177/95
[2017-07-23 18:55] VITALS: BP 156/103
[2017-07-23 23:53] VITALS: BP 114/77
[2017-07-24 02:26] VITALS: BP 154/92
[2017-07-24 07:40] VITALS: BP 118/63
[2017-07-24 12:09] VITALS: BP 182/78
[2017-07-24 15:49] LABS: HEMATOCRIT 33.6 % (37.0-47.0); HEMOGLOBIN 10.9 gm/dL (12.0-15.0); MCH 27.5 pg (26.0-34.0); MCHC 32.4 g/dL (28.0-37.0); MCV 84.8 fL (80.0-100.0); RBC 3.97 mil/uL (4.20-5.00); WBC 8.6 thou/uL (4.0-11.0)
[2017-07-24 15:57] VITALS: BP 181/98
[2017-07-24 16:02] LABS: CALCIUM 8.9 mg/dL (8.5-10.1); CREATININE 0.7 mg/dL (0.6-1.0); MAGNESIUM 2.1 mg/dL (1.8-2.4); POTASSIUM 3.1 mmol/L (3.5-5.1); TOTAL BILIRUBIN 0.2 mg/dL (<0.1-1.0); TOTAL PROTEIN 7.7 g/dL (6.4-8.2)
[2017-07-24 19:00] VITALS: BP 141/79
[2017-07-25 04:25] VITALS: BP 155/91
[2017-07-25 06:07] LABS: HEMATOCRIT 29.9 % (37.0-47.0); MCHC 33.5 g/dL (28.0-37.0); MCV 83.6 fL (80.0-100.0); RBC 3.57 mil/uL (4.20-5.00); RDW 15.2 % (10.5-14.5); WBC 9.1 thou/uL (4.0-11.0)
[2017-07-25 06:14] LABS: CALCIUM 8.7 mg/dL (8.5-10.1); CREATININE 0.5 mg/dL (0.6-1.0); MAGNESIUM 2.1 mg/dL (1.8-2.4); POTASSIUM 3.4 mmol/L (3.5-5.1)
[2017-07-25 10:31] VITALS: BP 154/83; BP 184/85
[2017-07-25 11:15] VITALS: BP 181/95
[2017-07-25 15:05] VITALS: BP 153/80
[2017-07-25 19:25] VITALS: BP 144/78
[2017-07-26 04:15] VITALS: BP 158/82
[2017-07-26 07:30] LABS: HEMATOCRIT 32.7 % (37.0-47.0); HEMOGLOBIN 10.6 gm/dL (12.0-15.0); MCH 27.2 pg (26.0-34.0); MCHC 32.3 g/dL (28.0-37.0); RBC 3.89 mil/uL (4.20-5.00); RDW 15.9 % (10.5-14.5); WBC 8.9 thou/uL (4.0-11.0)
[2017-07-26 07:38] LABS: CALCIUM 8.8 mg/dL (8.5-10.1); CREATININE 0.6 mg/dL (0.6-1.0); MAGNESIUM 2.1 mg/dL (1.8-2.4); POTASSIUM 3.5 mmol/L (3.5-5.1)
[2017-07-26 08:11] VITALS: BP 152/89
[2017-07-26 11:39] VITALS: BP 153/85
[2017-07-26 16:05] VITALS: BP 178/88
[2017-07-26 19:15] VITALS: BP 171/92
[2017-07-27] VITALS (8 sets, daily range): BP systolic 139–182; BP diastolic 83–102
[2017-07-27 05:47] LABS: HEMOGLOBIN 9.8 gm/dL (12.0-15.0); MCH 27.7 pg (26.0-34.0); MCHC 32.8 g/dL (28.0-37.0); MCV 84.2 fL (80.0-100.0); RBC 3.56 mil/uL (4.20-5.00); RDW 15.8 % (10.5-14.5); WBC 7.8 thou/uL (4.0-11.0)
[2017-07-27 06:03] LABS: CALCIUM 8.7 mg/dL (8.5-10.1); CREATININE 0.5 mg/dL (0.6-1.0); MAGNESIUM 2.2 mg/dL (1.8-2.4); POTASSIUM 3.7 mmol/L (3.5-5.1)
[2017-07-28 03:41] VITALS: BP 187/99
[2017-07-28 07:51] LABS: HEMATOCRIT 32.9 % (37.0-47.0); HEMOGLOBIN 10.6 gm/dL (12.0-15.0); MCH 27.2 pg (26.0-34.0); MCHC 32.2 g/dL (28.0-37.0); MCV 84.6 fL (80.0-100.0); RBC 3.88 mil/uL (4.20-5.00); RDW 16.2 % (10.5-14.5)
[2017-07-28 08:04] LABS: CREATININE 0.6 mg/dL (0.6-1.0); MAGNESIUM 2.1 mg/dL (1.8-2.4); POTASSIUM 3.6 mmol/L (3.5-5.1)
[2017-07-28 08:26] VITALS: BP 135/87
[2017-07-28] MEDS ORDERED: AUGMENTIN 875-1 EACH PER TUBE (08:57)
[2017-07-28 11:55] VITALS: BP 190/105
[2017-07-28 21:08] LABS: HISTOPLASMA MYCELIAL-ID Negative (Negative)
[2017-07-29 22:10] LABS: HISTOPLASMA MYCELIAL-CF Negative (Neg:<1:2)
== END 2017-07-28 15:29 | DRG 871 ==
LOC: ER 15:39 → EROBS 17:49 → 3W 17:49
PROVIDERS: Hospitalist; Internal Medicine; Physician Assistant; Specialist
PROC: 02HV33Z Insertion of Infusion Device into Superior Vena Cava, Percutaneous Approach (ICD-10-PCS; principal; 2017-07-17)
DX: A41.9 Sepsis, unspecified organism (principal); L89.324 Pressure ulcer of left buttock, stage 4; J18.9 Pneumonia, unspecified organism; I63.9 Cerebral infarction, unspecified; N17.9 Acute kidney failure, unspecified; J44.0 Chronic obstructive pulmonary disease with (acute) lower respiratory infection; E44.0 Moderate protein-calorie malnutrition; L97.229 Non-pressure chronic ulcer of left calf with unspecified severity; G45.8 Other transient cerebral ischemic attacks and related syndromes; F03.90 Unspecified dementia, unspecified severity, without behavioral disturbance, psychotic disturbance, mood disturbance, and anxiety; F32.9 Major depressive disorder, single episode, unspecified; K21.9 Gastro-esophageal reflux disease without esophagitis; I10 Essential (primary) hypertension; G40.909 Epilepsy, unspecified, not intractable, without status epilepticus; Y95 Nosocomial condition; E11.65 Type 2 diabetes mellitus with hyperglycemia; N31.9 Neuromuscular dysfunction of bladder, unspecified; Z66 Do not resuscitate; N30.91 Cystitis, unspecified with hematuria; E87.70 Fluid overload, unspecified; E87.6 Hypokalemia; B96.4 Proteus (mirabilis) (morganii) as the cause of diseases classified elsewhere; L97.519 Non-pressure chronic ulcer of other part of right foot with unspecified severity; Z93.1 Gastrostomy status; Z68.32 Body mass index [BMI] 32.0-32.9, adult; Z79.82 Long term (current) use of aspirin; Z79.899 Other long term (current) drug therapy
CPT/HCPCS: 10779; 10879; 27000